=== PATIENT | female | born 1965 | race Caucasian/White ===

== ENCOUNTER 2016-12-21 12:46 | Emergency (ER) | payer BC ==
[2016-12-21] MEDS ORDERED: ONDANSETRON 4 MG/2 ML VIAL IVP ONE (13:08)
[2016-12-21] MEDS ORDERED: MORPHINE SULFATE 4 MG/1 ML IVP ONE (13:08)
[2016-12-21] MEDS ORDERED: Sodium Chloride 0.9% 1,000 ML PRIMARY IV ONE (13:08)
--- NOTE | 2016-12-21 13:16 | PDOC ---
Abdomen/Flank HPI - General Chief Complaint: Abdomen Pain Stated Complaint: nausea diahrea bloody stool Date Seen by Provider: 12/21/16 Time Seen by Provider: 13:09 Source: POSITIVE: Patient Exam Limitations: POSITIVE: No limitations Nurse's Notes Reviewed & Considered: Yes - History of Present Illness Initial Comments: Patient comes in today with chief complaint of abdominal pain and bloody in her stool. Patient awoke this morning at 03 100 with abdominal cramping feeling as though she needed to go to the bathroom. She sat on the stool for a while having significant abdominal cramps but no stool. She returned to bed placed a heating pad on her abdomen and at 0600 awoke went to the bathroom and had significant diarrheic stools and abdominal cramping. At the end of this period of time she did pass a small amount of bloody mucus. At 0900 she passed a larger bloody mucus. She comes in now complaining of fevers, chills, sweats, nausea but no vomiting, diarrhea. She states she's been having 3 nights in a row of fevers no fevers during the day. She also has urge incontinence, foul- smelling urine, increased frequency of urination. Further, she has been of intermittent chest pain that is left-sided, substernal, nonradiating, described as a tightening of her chest. She denies any cough, shortness of breath. Body Location Affected: REPORTS: Abdomen Timing: REPORTS: Abrupt, Getting Worse Duration: <24 hours Severity: Moderate Quality: REPORTS: Cramping, "Pain" Abdominal Pain Onset Location: REPORTS: Generalized abdomen Abdominal Pain Radiation: REPORTS: Flank Context: REPORTS: None Modifying Factors: improves with: Nothing Associated Symptoms: REPORTS: Back pain, Chills, Diaphoresis, Fever, Nausea, Diarrhea, Mucous Diarrhea Similar Symptoms Previously: No Recent Care Received: REPORTS: Denies Any Prior Injuries Related to Current Complaint?: No - Patient Allergies Allergies/Adverse Reactions: Allergies Allergy/AdvReac Type Severity Reaction Status Date / Time Sulfa (Sulfonamide Allergy Severe SWELLING Verified 12/21/16 13:00 Antibiotics) Past Medical History - heen HEENT History: Denies History Cardiovascular History: Denies History Respiratory History: Denies History Gastrointestinal History: Denies History Genitourinary History: Incontinence Endocrine History: Denies History Musculoskeletal History: Arthritis Neurological History: Migraines Blood Disorders: Denies History Psychiatric History: Denies History History of Sexually Transmitted Diseases: No Female Reproductive History: Hysterectomy Obstetrical History: Denies History Cancer History: Denies History In Past Year Been Physically Harmed or Verbally Threatened: No History of MDRO: No Tobacco Use: Current Every Day Smoker Alcohol Use: Sober Substance Use Type: None Previous Surgical History: Yes Type / Date of Surgery: PARTIAL HYST, BLADDER SUSPENSION, HERNIA REPAIR, APPY, RIGHT SHOULDER SURGERY Significant Family History: Cancer ROS - Limitations ROS Limitations: No Limitations Constitution: REPORTS: Chills, Fever, Diaphoresis, Weakness, Night Sweats Cardiovascular: REPORTS: Chest Pain Respiratory: REPORTS: Denies Resp Symptoms Neurological: REPORTS: Denies Neuro Symptoms Gastrointestinal: REPORTS: Abdominal Pain, Nausea, Diarrhea Endocrine: REPORTS: Denies Symptoms Musculoskeletal: REPORTS: Back Pain Genitourinary: REPORTS: Dysuria, Flank Pain Eyes: REPORTS: Denies Symptoms ENT: REPORTS: Denies Symptoms Skin: REPORTS: Denies Skin Symptoms Lympathic: REPORTS: Denies Lympathic Symptoms Immunologic: POSITIVE: Denies Symptoms Psychiatric: POSITIVE: Denies Psych Symptoms Abdominal/Flank Pain PE - General Appearance General Appearance: POSITIVE: Alert, Cooperative, No Acute Distress, No Evidence of Trauma - HEENT HEENT: POSITIVE: Head Inspection Nml, Eyes Inspection Nml, Ears Inspection Nml, Nose Inspection Nml, PERRL, EOMI - Neck Neck: POSITIVE: Normal Inspection, No Apparent Injury - Respiratory Respiratory: POSITIVE: No Respiratory Distress, Breath Sounds Normal, Chest Non- Tender - Cardiovascular Cardiovascular: POSITIVE: Regular Rate and Rhythm, Heart Sounds Normal - Chest Chest: POSITIVE: Non Tender - Abdomen Abdomen: Soft: (All Quadrants), No Splenomegaly: (All Quadrants), No Hepatomegaly: (All Quadrants), Tenderness Noted: (All Quadrants), Hypoactive Bowel Sounds: (All Quadrants) - Genital / Rectal Rectal: POSITIVE: Heme Positive Stool - Back Back: POSITIVE: CVA Tenderness (R), CVA Tenderness (L) - Skin Skin: POSITIVE: Intact, Normal For Race, Warm, Dry, No Rash - Extremities Extremity: Non-Tender: (All Extremities), Normal ROM: (All Extremities), Normal Inspection: (All Extremities) - Neurological Neurological: POSITIVE: Affect Apporpriate, Oriented X3, Motor Normal, Sensation Normal - Psychological Psychiatric: POSITIVE: Affect Appropriate, Mood Appropriate Abdomen Progress - Results Reviewed by me Xrays/CTs/US Reviewed by me: Yes Discussed with Radiologist: Yes Lab Results Reviewed: Yes Lab Results:: Laboratory Results 12/21/16 12/21/16 Range/Units 13:08 13:41 WBC 11.16 H (4.8-10.8) 10^3/uL RBC 4.78 (4.20-5.40) 10^6/uL Hgb 13.8 (12.0-16.0) g/dL Hct 41.6 (37.0-47.0) % MCV 87.0 (81-99) FL MCH 28.9 (27-31) PG MCHC 33.2 (33-37) g/dL RDW Std Deviation 46.8 (39-50) fL RDW Coeff of Arnol 14.9 H (11.5-14.5) % Plt Count 439 H (140-350) 10*3/uL MPV 9.5 (7.4-12.2) FL Immature Gran % (Auto) 0.2 (0-5) % Neut % (Auto) 70.8 (50-80) % Lymph % (Auto) 22.3 (10-50) % [place] % (Auto) 4.1 L (5-15) % Eos % (Auto) 2.2 (0-8) % Baso % (Auto) 0.4 (0-1) % Immature Gran # (Auto) 0.02 10*3/UL Neut # (Auto) 7.89 10*3/UL Lymph # (Auto) 2.49 10*3/uL [place] # (Auto) 0.46 (0.3-0.8) 10*3/UL Eos # (Auto) 0.25 10*3/UL Baso # (Auto) 0.05 10*3/UL WBC Morphology Comment Normal morphology (NORM) Plt Morphology Comment Normal morphology (NORM) RBC Morph Comment Normal morphology (NORM) PT 9.7 (9.7-11.4) secs INR 0.94 (0.00-5.90) N/A Sodium 144 (135-145) meq/L Potassium 4.2 (3.8-5.2) meq/L Chloride 112 (98-112) meq/L Carbon Dioxide 21 L (23-33) meq/L Anion Gap 11 (5-20) BUN 15 (7-22) mg/dL Creatinine 0.7 (0.50-1.20) mg/dL Estimated GFR > 60 (>60 ml/min/1.73m(2)) BUN/Creatinine Ratio 21.42 H (6-20) Glucose 95 (78-110) mg/dL Calculated Osmolality 298.0 H (267-292) mOsm/kg Calcium 9.2 (8.7-10.7) mg/dL Magnesium 1.8 (1.6-2.4) mg/dL Total Bilirubin 0.3 (0.3-1.2) mg/dL AST 23 (8-39) IU/L ALT 33 (9-52) IU/L Alkaline Phosphatase 87 (38-126) IU/L Troponin I < 0.012 (< 0.040) ng/mL Total Protein 7.2 (6.1-8.0) g/dL Albumin 4.1 (3.5-4.8) g/dL Globulin 3.1 (2.50-4.10) g/dL Albumin/Globulin Ratio 1.30 (1.3-2.0) mg/g Ur Collection Type Clean catch urine Urine Color Yellow Urine Clarity Slightly shira (CLEAR) Urine pH 5.5 (5.0-8.5) Ur Specific [place] 1.008 (1.005-1.030) Urine Protein Negative (NEG) mg/dl Urine Glucose (UA) Negative (NEG) mg/dL Urine Ketones Negative (NEG) Urine Occult Blood Small H (NEG) Urine Nitrate Positive H (NEG) Urine Bilirubin Negative (NEG) Urine Urobilinogen 0.2 (0.2) EU/dL Ur Leukocyte Esterase Negative (NEG) Urine RBC 0 (NONE) /hpf Urine WBC 1-3 (NONE) Ur Squamous Epith Cells Few (NONE) Ur Renal Epithelial Cell None (NONE) Urine Crystals None Urine Bacteria Moderate (NONE) Urine Casts None (NONE) Urine Mucus None (NONE) Urine Trichomonas None (NONE) Urine Yeast None (NONE) Ur Culture Indicated? Culture set EKG Interpretation:: POSITIVE: Normal Sinus Rhythm - Patient's Progress Pain Medication Addressed: POSITIVE: Yes Re-examine Time: 15:24 Status: POSITIVE: Improved MDM / ED Course: Patient was examined, IV started, blood drawn and sent to the lab for studies, radiographic studies obtained. Patient received IV morphine, normal saline, and Zofran. Findings: Stool is heme positive, white count is elevated to 11.6, hemoglobin and hematocrit are normal. Urinalysis reveals urinary tract infection with positive bacteria positive nitrites. EKG shows a sinus rhythm, troponin is negative. CT scan of her abdomen shows no acute intra-abdominal processes present. There are noted to be mesenteric lymph nodes present. Assessment: Diarrhea with blood present. Mesenteric adenitis. Urinary tract infection. Plan: IV antibiotics Cipro and Flagyl here in the emergency department. Discharge home on Cipro and Flagyl oral, [place] for pain, Zofran for nausea. She is to be on clear liquids for 24 hours and to advance diet slowly. She is to follow-up with Dr. Peguero for evaluation of her GI bleeding. Hemodynamically she is stable. - Consult Consult (If Yes, Name of Consulting MD & Time Called): Yes (Dr Peguero 15:30 ) Consulting MD will see pt:: POSITIVE: In Office Counseled: POSITIVE: Patient, Family, RE: Lab Results, RE: Radiology Results, RE : DX, RE: Need for F/U Patient Care Time - Estimated PCT Patient Care Time (In Minutes): 45 Vital Signs - Recent Vital Signs Vital Signs: Vital Signs (Last 8 hours) Temp Pulse Resp BP Pulse Ox 12/21/16 13:04 98.1 F 103 H 20 144/116 95 - VS Reviewed Vital Signs Reviewed: Yes Discharge Clinical Impression: Abdominal pain, Diarrhea, Urinary tract infectious disease Discharge Disposition: Discharged to Home Condition: Stable Patient Instructions Given at Discharge: Urinary Tract Infection in Women (ED) , Acute Abdominal Pain (ED), Gastroenteritis (ED)
--- NOTE | 2016-12-21 13:24 | EKG ---
[address] [address] Measurements Intervals [place] Rate: 88 P: 45 HI: 115 QRS: 52 QRSD: 104 T: 50 QT: 357 QTc: 402 Interpretive Statements SINUS RHYTHM WITH SHORT HI INTERVAL INDETERMINATE AXIS INCOMPLETE RIGHT BUNDLE BRANCH BLOCK No previous ECG available for comparison Electronically Signed On 12-21-16 20:02:45 MST by Kash Majano [email or web address]
[2016-12-21 13:38] VITALS: RESP 20; TEMP 98.1
[2016-12-21 13:44] LABS: RDW COEFFICIENT OF VARIATION 14.9 % (11.5-14.5)
[2016-12-21 13:54] LABS: BILIRUBIN,URINE NEGATIVE (NEG); CLARITY,URINE Slightly Clo (CLEAR); GLUCOSE, URINE (UA) NEGATIVE (NEG); LEUKOCYTE ESTERASE ,URINE NEGATIVE (NEG); NITRATE,URINE POSITIVE (NEG); OCCULT BLOOD,URINE SMALL (NEG); PH,URINE 5.5 (5.0-8.5); PROTEIN,URINE NEGATIVE (NEG); UROBILINOGEN,URINE 0.2 EU/dL (0.2)
[2016-12-21 13:55] LABS: URINE SAMPLE TYPE CLEAN CATCH URINE
[2016-12-21 13:59] LABS: BACTERIA,URINE MODERATE; RBC,URINE 0 /hpf; SQUAMOUS EPITHELIAL CELL,UR FEW
[2016-12-21 14:01] LABS: BASOPHILS # (AUTO) 0.05 10*3/UL; BASOPHILS % (AUTO) 0.4 % (0-1); EOSINOPHILS % (AUTO) 2.2 % (0-8); HEMATOCRIT 41.6 % (37.0-47.0); HEMOGLOBIN 13.8 g/dL (12.0-16.0); IMM GRAN % (AUTO) 0.2 % (0-5); IMM GRAN# (AUTO) 0.02 10*3/UL; LYMPHOCYTES # (AUTO) 2.49 10*3/uL; LYMPHOCYTES % (AUTO) 22.3 % (10-50); MEAN CORPUSCULAR HEMOGLOBIN 28.9 PG (27-31); MEAN CORPUSCULAR HGB CONC 33.2 g/dL (33-37); MEAN PLATELET VOLUME 9.5 FL (7.4-12.2); MONOCYTES # (AUTO) 0.46 10*3/UL (0.3-0.8); MONOCYTES % (AUTO) 4.1 % (5-15); NEUTROPHILS # (AUTO) 7.89 10*3/UL; NEUTROPHILS % (AUTO) 70.8 % (50-80); RED BLOOD COUNT 4.78 10^6/uL (4.20-5.40); WHITE BLOOD COUNT 11.16 10^3/uL (4.8-10.8)
[2016-12-21 14:02] LABS: PLATELET MORPHOLOGY COMMENT NORMAL MORPHOLOGY (NORM)
[2016-12-21 14:10] LABS: PROTHROMBIN TIME 9.7 secs (9.7-11.4)
[2016-12-21 14:11] LABS: ASPARTATE AMINO TRANSFERASE 23 IU/L (8-39); BILIRUBIN,TOTAL 0.3 mg/dL (0.3-1.2); BLOOD UREA NITROGEN 15 mg/dL (7-22); BUN/CREATININE RATIO 21.42 (6-20); CALCIUM 9.2 mg/dL (8.7-10.7); CHLORIDE 112 meq/L (98-112); CREATININE 0.7 mg/dL (0.50-1.20); EST GLOMERULAR FILTRATION > 60 (>60 ml/min/1.73m(2)); GLUCOSE 95 mg/dL (78-110); MAGNESIUM 1.8 mg/dL (1.6-2.4); POTASSIUM 4.2 meq/L (3.8-5.2); SODIUM 144 meq/L (135-145); TOTAL PROTEIN 7.2 g/dL (6.1-8.0)
--- NOTE | 2016-12-21 15:12 | DI ---
CT ABD W/CN AND PELVIS W/CN,12/21/2016 1:08 PM: Clinical History: GI bleed and cramping. Previous Exam: None at this facility. Findings: Multiple helically acquired CT images are obtained through the abdomen and pelvis following the intra venous administration of contrast, and demonstrate a normal-appearing urinary bladder. There is no fr ee air nor free fluid. The liver, gallbladder, spleen, pancreas and adrenals are unremarkable. There is no significant hydro nephrosis. Skeletal structures are unremarkable. The lung bases are clear. There is no retroperitoneal lymphadenopathy. There are a few small mesenteric lymph nodes. The append ix is not seen, but there are no secondary signs of acute appendicitis. Patient is status post hysterectomy. There is a 18 mm cyst within the left ovary. This is within nor mal limits for a premenopausal female. Impression: A few small mesenteric lymph nodes could represent underlying gastroenteritis. 18 mm cyst within the left ovary. This is a normal finding in a premenopausal female. If this patient is postmenopausal, this should be further evaluated with sonography and gynecological consultation.
[2016-12-21] MEDS ORDERED: metroNIDAZOLE 500mg (Premix) 500 MG in Premix 1 BAG IV ONE (15:19)
[2016-12-21] MEDS ORDERED: Ciprofloxacin 400mg (Premix) 400 MG in Dextrose 1 BAG IV ONE (15:19)
== END 2016-12-21 17:00 | disposition home or self-care (01) ==
LOC: ER 12:46
DX: R19.7 Diarrhea, unspecified (principal); N39.0 Urinary tract infection, site not specified; R10.84 Generalized abdominal pain; R07.9 Chest pain, unspecified; R11.0 Nausea; R50.9 Fever, unspecified
CPT/HCPCS: 74177; 80053; 81001; 81003; 83735; 84484; 85025; 85610; 87040; 87077; 87088; 87186; 87205; 93005; 93010; 96361; 96365; 96368; 99284; J0744; J2270; J2405; J3490; J7030

== ENCOUNTER 2017-01-08 06:51 | Day surgery (SDC) | payer BC ==
[2017-01-08] MEDS ORDERED: LIDOCAINE W/ SODIUM BICARB 0.5 ML SYR ONE (06:56)
[2017-01-08] MEDS ORDERED: Lactated Ringers 1,000 ML PRIMARY IV ONE (06:56)
[2017-01-08] MEDS ORDERED: LIDOCAINE HCL/PF 2% (20 MG/ML) - 5 ML SYRINGE ONE ×2 (06:57→06:58)
[2017-01-08] MEDS ORDERED: fentaNYL Inj 100 MCG/2 ML VIAL ONE (06:57)
[2017-01-08] MEDS ORDERED: MIDAZOLAM 5 MG/1 ML ONE (06:58)
--- NOTE | 2017-01-08 09:02 | GEN.OPNOTE ---
EGD / Colonoscopy Report Surgery Date: 01/08/17 Preoperative Diagnosis: Samuel pain and diarrhea Postoperative Diagnosis: Hemorrhagic gastritis Procedure: Colonoscopy with biopsies. EGD with biopsies Surgeon: Guillermo Peguero MD Anesthesia Provider: Shawn Saha CRNA Anesthesia Type: MAC Indications: Patient's been having some diarrhea and crampy abdominal pain. CT scan only showed possible gastritis EGD Findings: Esophagus: There was video EGD scope inserted posterior pharynx under direct visualization. It was guided into the esophagus. Patient's esophagus was Totally normal GE Junction : GE junction proximal be 40 cm from incisors Fundus : Fundus was visualized and no abnormal pathology Body : Patient is body of the stomach appeared be normal. There was flakes of old blood seen Prepyloric : Prepyloric area had hemorrhagic gastritis. Biopsies taken Small Intestine : First second third portion of duodenum normal biopsies taken A lubricated flexible upper endoscope was inserted and passed through the esophagus and stomach into the duodenum. Colonoscopy Findings: Prep : Excellent Cecum : Scope was advanced the cecum and ileocecal valve identified. I could see the ileocecal valve but could not cannulated so I did not get the look of the terminal ileum. Her cecum looked the completely normal Ascending : Ascending colon was within normal limits Random biopsies taken Transverse : Transverse colon was within normal limits random biopsies taken Sigmoid : Descending and sigmoid colon was within normal limits random biopsies taken Rectum : Rectum free from disease Digital Rectal Exam : A lubricated flexible colonoscope was inserted and passed to the blind end of the cecum.
[2017-01-08 10:07] LABS: BILIRUBIN,URINE NEGATIVE (NEG); CLARITY,URINE CLEAR (CLEAR); GLUCOSE, URINE (UA) NEGATIVE (NEG); LEUKOCYTE ESTERASE ,URINE NEGATIVE (NEG); NITRATE,URINE NEGATIVE (NEG); OCCULT BLOOD,URINE NEGATIVE (NEG); PH,URINE 5.5 (5.0-8.5); PROTEIN,URINE NEGATIVE (NEG); UROBILINOGEN,URINE 0.2 EU/dL (0.2)
[2017-01-08 10:09] LABS: URINE SAMPLE TYPE CATH SPECIMEN
[2017-01-08 11:13] VITALS: RESP 16
[2017-01-08 11:14] VITALS: TEMP 98.2
== END 2017-01-08 10:02 | disposition home or self-care (01) ==
LOC: SDSC 06:51
PROVIDERS: ATTEND Surgery
DX: R10.84 Generalized abdominal pain (principal); R19.7 Diarrhea, unspecified; K29.71 Gastritis, unspecified, with bleeding
CPT/HCPCS: 43239; 45380; 81003; 87339; J2704; J3010; J2001; J2250; J7120